=== PATIENT | male | born 1985 | race American Indian/Alaskan Native ===

== ENCOUNTER 2020-06-29 07:09 | Emergency (ER) | payer OTHER ==
[2020-06-29] MEDS ORDERED: Lactated Ringers 1,000 ML IV ONE ×2 (07:39→08:27)
[2020-06-29] MEDS ORDERED: Ondansetron 4 MG/2 ML SDV IV ONE (07:39)
[2020-06-29] MEDS ORDERED: diphenhydrAMINE 50 MG/ML SDV IVPUSH ONE (07:39)
--- NOTE | 2020-06-29 07:46 | EDM.PDOC ---
ED HPI GENERAL MEDICAL PROBLEM - General Chief Complaint: Drug or Alcohol Abuse Stated Complaint: call in Time Seen by Provider: 06/29/20 07:30 Source of Information: Reports: Patient History Limitations: Reports: No Limitations - History of Present Illness INITIAL COMMENTS - FREE TEXT/NARRATIVE: This patient is brought to the emergency department today by ambulance from homes with concerns of a possible opiate overdose. According to EMS patient was found with a decreased level of consciousness and unresponsive at home and breathing by the local Police Department. He was given a total of 28 mg of intranasal Narcan. He was never noted to be cyanotic or in respiratory arrest. Once the ambulance got to him he was very anxious agitated shaky nausea and vomiting. He was transported to the emergency department. Upon arrival the patient reports that he has a daily IV methamphetamine injector. This morning he injected what he was told to be a 30 mg Percocet. Shortly thereafter he woke up in the ambulance. He complains of being very shaky with palpitations his heart is racing he is anxious. He is nauseated he has been vomiting. He has no pain in his chest shortness of breath or difficulty breathing. No cough or congestion. No fever no chills. No abdominal pain just nausea and vomiting. No diarrhea. He did have a twin brother who just a couple years ago from a heart attack but also was a methamphetamine user. NO COVID exposure no COVID symptoms. - Related Data Allergies Allergy/AdvReac Type Severity Reaction Status Date / Time No Known Allergies Allergy Verified 06/29/20 07:31 Home Meds: Home Meds . [No Known Home Meds] 06/29/20 [History] Social & Family History - Tobacco Use Smoking Status *Q: Never Smoker - Recreational Drug Use Recreational Drug Use: Yes Recreational Drug Type: Reports: Oxycodone Recreational Drug Use Frequency: Daily ED ROS GENERAL - Review of Systems Review Of Systems: Comprehensive ROS is negative, except as noted in HPI. - Physical Exam Exam: See Below Exam Limited By: No Limitations General Appearance: Alert, WD/WN, Anxious Eye Exam: Bilateral Eye: EOMI, PERRL (6) Ears: Normal External Exam Nose: Normal Inspection Throat/Mouth: Normal Inspection, Normal Lips Head Exam: Atraumatic, Normocephalic Neck: Normal Inspection, Supple, Non-Tender Respiratory/Chest: No Respiratory Distress, Lungs Clear, Normal Breath Sounds, No Accessory Muscle Use, Chest Non-Tender Cardiovascular: Normal Peripheral Pulses, Tachycardia, Irregularly Irregular GI/Abdominal: Normal Bowel Sounds, Soft, Non-Tender (Male) Exam: Deferred Rectal (Males) Exam: Deferred Neuro Exam (Abbreviated): Alert, Oriented, CN II-XII Intact, Normal Cognition, Normal Gait, No Motor/Sensory Deficits Back Exam: Normal Inspection, Full Range of Motion Extremities: Normal Inspection, Normal Range of Motion, No Pedal Edema, Normal Capillary Refill Psychiatric: Anxious Skin Exam: Intact, Normal Color, Diaphoretic EKG INTERPRETATION EKG Date: 06/29/20 Time: 07:51 Rhythm: A-Fib Rate (Beats/Min): 156 [place]: Normal P-Wave: Present QRS: Normal ST-T: Normal QT: Normal Course - Vital Signs Last Recorded V/S: Last Vital Signs Temp 97.6 F 06/29/20 07:31 Pulse 131 H 06/29/20 10:27 Resp 21 H 06/29/20 10:27 BP 117/82 06/29/20 10:27 Pulse Ox 97 06/29/20 10:27 - Orders/Labs/Meds Orders: Active Orders 24 hr Category Date Time Status CULTURE URINE [RM] Stat Lab 06/29/20 12:02 Received Labs: Laboratory Tests 06/29/20 06/29/20 06/29/20 Range/Units 07:50 07:50 07:51 WBC 11.5 H (5.0-10.0) 10^3/uL RBC 5.39 (4.6-6.2) 10^6/uL Hgb 14.1 (14.0-18.0) g/dL Hct 43.6 (40.0-54.0) % MCV 80.9 (80-100) fL MCH 26.2 L (27.0-34.0) pg MCHC 32.3 L (33.0-35.0) g/dL Plt Count 359 (150-450) 10^3/uL Neut % (Auto) 71.5 (42.2-75.2) % Lymph % (Auto) 15.5 L (20.5-50.1) % [place] % (Auto) 7.2 (2-8) % Eos % (Auto) 5.5 H (1.0-3.0) % Baso % (Auto) 0.3 (0.0-1.0) % Sodium 143 (136-145) mmol/L Potassium 3.4 L (3.5-5.1) mmol/L Chloride 103 (98-107) mmol/L Carbon Dioxide 28 (21-32) mmol/L Anion Gap 15.4 H (7-13) mEq/L BUN 18 (7-18) mg/dL Creatinine 1.14 (0.70-1.30) mg/dL Est Cr Clr Drug Dosing TNP Estimated GFR (MDRD) > 60 BUN/Creatinine Ratio 15.8 (No establ ref range) Glucose 103 H (74-99) mg/dL Calcium 9.3 (8.5-10.1) mg/dL Total Bilirubin 0.3 (0.2-1.0) mg/dL AST 16 (15-37) U/L ALT 24 (16-63) U/L Alkaline Phosphatase 93 (46-116) U/L Troponin I < 0.017 (0.000-0.056) ng/mL Total Protein 8.5 H (6.4-8.2) g/dL Albumin 3.9 (3.4-5.0) g/dL Globulin 4.6 Albumin/Globulin Ratio 0.8 TSH, Ultra Sensitive 1.76 (0.36-3.74) uIU/mL Urine Color (YELLOW) Urine Appearance (CLEAR) Urine pH (5.0-9.0) Ur Specific [place] (1.005-1.030) Urine Protein (NEGATIVE) Urine Glucose (UA) (NEGATIVE) Urine Ketones (NEGATIVE) Urine Occult Blood (NEGATIVE) Urine Nitrite (NEGATIVE) Urine Bilirubin (NEGATIVE) Urine Urobilinogen (0.2-1.0) mg/dL Ur Leukocyte Esterase (NEGATIVE) Urine RBC /HPF Urine WBC (0-5/HPF) /HPF Ur Epithelial Cells (NOT SEEN) /HPF Urine Bacteria (0-FEW/HPF) /HPF Urine Mucus (NOT SEEN) /LPF Salicylates (2.8-20(Therapeutic)) mg/dL Urine Opiates Screen (NEGATIVE) Ur Oxycodone Screen (NEGATIVE) Urine Methadone Screen (NEGATIVE) Acetaminophen 0 L (10-30 (Therapeutic)) ug/mL Ur Barbiturates Screen (NEGATIVE) U Tricyclic Antidepress (NEGATIVE) Ur Phencyclidine Scrn (NEGATIVE) Ur Amphetamine Screen (NEGATIVE) U Methamphetamines Scrn (NEGATIVE) Urine MDMA Screen (NEGATIVE) U Benzodiazepines Scrn (NEGATIVE) Urine Cocaine Screen (NEGATIVE) U Marijuana (THC) Screen (NEGATIVE) Ethyl Alcohol < 3 (0) mg/dL 06/29/20 06/29/20 06/29/20 Range/Units 07:51 12:02 12:02 WBC (5.0-10.0) 10^3/uL RBC (4.6-6.2) 10^6/uL Hgb (14.0-18.0) g/dL Hct (40.0-54.0) % MCV (80-100) fL MCH (27.0-34.0) pg MCHC (33.0-35.0) g/dL Plt Count (150-450) 10^3/uL Neut % (Auto) (42.2-75.2) % Lymph % (Auto) (20.5-50.1) % [place] % (Auto) (2-8) % Eos % (Auto) (1.0-3.0) % Baso % (Auto) (0.0-1.0) % Sodium (136-145) mmol/L Potassium (3.5-5.1) mmol/L Chloride (98-107) mmol/L Carbon Dioxide (21-32) mmol/L Anion Gap (7-13) mEq/L BUN (7-18) mg/dL Creatinine (0.70-1.30) mg/dL Est Cr Clr Drug Dosing Estimated GFR (MDRD) BUN/Creatinine Ratio (No establ ref range) Glucose (74-99) mg/dL Calcium (8.5-10.1) mg/dL Total Bilirubin (0.2-1.0) mg/dL AST (15-37) U/L ALT (16-63) U/L Alkaline Phosphatase (46-116) U/L Troponin I (0.000-0.056) ng/mL Total Protein (6.4-8.2) g/dL Albumin (3.4-5.0) g/dL Globulin Albumin/Globulin Ratio TSH, Ultra Sensitive (0.36-3.74) uIU/mL Urine Color Yellow (YELLOW) Urine Appearance Clear (CLEAR) Urine pH 6.0 (5.0-9.0) Ur Specific [place] >= 1.030 (1.005-1.030) Urine Protein Trace H (NEGATIVE) Urine Glucose (UA) Negative (NEGATIVE) Urine Ketones Negative (NEGATIVE) Urine Occult Blood Trace-intact H (NEGATIVE) Urine Nitrite Negative (NEGATIVE) Urine Bilirubin Negative (NEGATIVE) Urine Urobilinogen 0.2 (0.2-1.0) mg/dL Ur Leukocyte Esterase Small H (NEGATIVE) Urine RBC Not seen /HPF Urine WBC 5-10 H (0-5/HPF) /HPF Ur Epithelial Cells Rare (NOT SEEN) /HPF Urine Bacteria Not seen (0-FEW/HPF) /HPF Urine Mucus Not seen (NOT SEEN) /LPF Salicylates < 2.8 L (2.8-20(Therapeutic)) mg/dL Urine Opiates Screen Positive H (NEGATIVE) Ur Oxycodone Screen Negative (NEGATIVE) Urine Methadone Screen Negative (NEGATIVE) Acetaminophen (10-30 (Therapeutic)) ug/mL Ur Barbiturates Screen Negative (NEGATIVE) U Tricyclic Antidepress Negative (NEGATIVE) Ur Phencyclidine Scrn Negative (NEGATIVE) Ur Amphetamine Screen Positive H (NEGATIVE) U Methamphetamines Scrn Positive H (NEGATIVE) Urine MDMA Screen Positive H (NEGATIVE) U Benzodiazepines Scrn Negative (NEGATIVE) Urine Cocaine Screen Negative (NEGATIVE) U Marijuana (THC) Screen Negative (NEGATIVE) Ethyl Alcohol (0) mg/dL Meds: Medications Discontinued Medications Generic Name Dose Route Start Last Admin Trade Name Freq PRN Reason Stop Dose Admin Diltiazem HCl 20 mg 06/29/20 10:21 06/29/20 10:59 Diltiazem IVPUSH 06/29/20 10:22 20 mg ONETIME ONE Administration Diphenhydramine HCl 50 mg 06/29/20 07:39 06/29/20 08:01 Benadryl IVPUSH 06/29/20 07:40 50 mg ONETIME ONE Administration Lactated Ringer's 1,000 mls @ 1,000 mls/hr 06/29/20 07:39 06/29/20 08:02 Ringers, Lactated IV 06/29/20 08:38 1,000 mls/hr .BOLUS ONE Administration Lactated Ringer's 1,000 mls @ 1,000 mls/hr 06/29/20 08:27 06/29/20 08:59 Ringers, Lactated IV 06/29/20 09:26 1,000 mls/hr .BOLUS ONE Administration Diltiazem HCl 125 mg/ Sodium 150 mls @ 5 mls/hr 06/29/20 10:30 06/29/20 10:59 Chloride IV 5 mls/hr ASDIRECTED LAURA Administration Protocol Lactated Ringer's 1,000 mls @ 150 mls/hr 06/29/20 11:15 Ringers, Lactated IV ASDIRECTED LAURA Metoprolol Tartrate 5 mg 06/29/20 08:16 06/29/20 08:21 Lopressor IVPUSH 06/29/20 08:17 5 mg ONETIME ONE Administration Ondansetron HCl 4 mg 06/29/20 07:39 06/29/20 08:01 Zofran IV 06/29/20 07:40 4 mg ONETIME ONE Administration - Re-Assessments/Exams Free Text/Narrative Re-Assessment/Exam: Initially the patient was given a fluid bolus. Zofran and Benadryl with resolution of his nausea retching and vomiting. The patient clearly has a new onset of atrial fibrillation with RVR. Although I am unsure if this is new as of today or if he had this in the recent past as he has no documentation of it. An aspect of this could be due to the narcotic withdrawal with the rather large amount of Narcan that was given to him. I would like to hydrate him and I did not give him any benzodiazepines at this time because after the Benadryl he was somewhat somnolent. He had regular respirations and he awoke to loud verbal. Even after the second liter of IV fluid and the patient was resting comfortably in no distress and appeared not to be anxious he still had a heart rate in the 140s to 150s. The patient was given metoprolol 5 mg IV push. His heart rate did improve down to the 120s. Laboratory evaluation is rather unremarkable. He has a negative troponin. He is urine drug screen is positive for opiates MDMA amphetamines and methamphetamines. Jc spoke with Dr. Underwood who would like the patient transfered as we do not have Echo capability here. I called and spoke with the hospitalist cone winder at [facility] as [facility] do not have beds. HPI ER COURSE findings and concerns were relayed to him. He would like Cardizem bolus and gtt started and no heparin at this time. I discussed the plan of care with the patient and his mother. They are comfortable with this plan and his questions answered. Departure - Departure Time of Disposition: 11:02 Disposition: DC/Tfer to Acute Hospital 02 Clinical Impression: Atrial fibrillation with rapid ventricular response, Polysubstance abuse Opiate overdose Qualifiers: Encounter type: initial encounter Injury intent: accidental or unintentional Qualified Code(s): T40.601A - Poisoning by unspecified narcotics, accidental (unintentional), initial encounter - Discharge Information Referrals: PCP,None [Primary Care Provider] - Forms: ED Department Discharge Sepsis Event Note (ED) - Evaluation Sepsis Screening Result: No Definite Risk - My Orders Last 24 Hours: My Active Orders 06/29/20 12:02 CULTURE URINE [RM] Stat - Assessment/Plan Last 24 Hours: My Active Orders 06/29/20 12:02 CULTURE URINE [RM] Stat
[2020-06-29] MEDS ORDERED: Metoprolol Tartrate 5 MG/5 ML SDV IVPUSH ONE (08:16)
[2020-06-29 08:26] LABS: ANION GAP 15.4 mEq/L (7-13); CHLORIDE,CL 103 mmol/L (98-107); SODIUM,NA 143 mmol/L (136-145)
[2020-06-29] MEDS ORDERED: Diltiazem 25 MG/5 ML SDV IVPUSH ONE (10:21)
[2020-06-29] MEDS ORDERED: Diltiazem 125 MG in Sodium Chloride 0.9% 125 ML IV SCH (10:30)
[2020-06-29] MEDS ORDERED: Lactated Ringers 1,000 ML IV SCH (11:15)
== END 2020-06-29 12:29 ==
LOC: DL.ED 07:09
DX: T40.601A Poisoning by unspecified narcotics, accidental (unintentional), initial encounter (principal); F15.10 Other stimulant abuse, uncomplicated; I48.91 Unspecified atrial fibrillation; R00.0 Tachycardia, unspecified
CPT/HCPCS: 36415; 80053; 80305; 80307; 81001; 84443; 84484; 85025; 87086; 93005; 96361; 96365; 96375; 99285; J1200; J2405; J3490; J7050; J7120

== ENCOUNTER 2021-01-19 11:04 | Emergency (ER) | payer SELFPAY ==
[2021-01-19] MEDS ORDERED: Ondansetron 4 MG/2 ML SDV IVPUSH ONE (11:23)
[2021-01-19] MEDS ORDERED: Sodium Chloride 0.9% 1,000 ML IV ONE (11:24)
[2021-01-19 12:03] LABS: ANION GAP 18.4 mEq/L (7-13); CHLORIDE,CL 103 mmol/L (98-107); SODIUM,NA 142 mmol/L (136-145)
--- NOTE | 2021-01-19 12:21 | EDM.PDOCBH ---
ED HPI GENERAL MEDICAL PROBLEM - General Chief Complaint: Drug or Alcohol Abuse Time Seen by Provider: 01/19/21 12:12 Source of Information: Reports: Patient, EMS, RN, RN Notes Reviewed History Limitations: Reports: Intoxication - History of Present Illness INITIAL COMMENTS - FREE TEXT/NARRATIVE: Patient presents to the ED via [facility] for altered mental status and respiratory decline d/t heroine abuse. Per EMS the patient was unresponsive upon their arrival at the scene; chest compressions were initiated prior to Narcan 8mcg administration. Patient was immediately responsive following admi nistration of Narcan and chest compressions were halted; no medications or defibrillation was necessary. Upon arrival to this facility the patient's GCS is 15, he is alert and oriented to all spheres. He states he was incarcerated for the past four months and has not used recreational drugs until last night when he injected his previous dose of heroine. He denies recent illness, fever, shaking chills, vision changes, chest pain/pressure, palpitations, shortness of breath, abdominal pain, nausea, vomiting, dysuria, hematuria, or diarrhea. He denies tobacco or alcohol use. - Related Data Allergies Allergy/AdvReac Type Severity Reaction Status Date / Time No Known Allergies Allergy Verified 06/29/20 07:31 Home Meds: Home Meds . [No Known Home Meds] 06/29/20 [History] Past Medical History - Past Health History Medical/Surgical History: Denies Medical/Surgical History Social & Family History - Family History Family Medical History: No Pertinent Family History - Tobacco Use Tobacco Use Status *Q: Current Every Day Tobacco User Years of Tobacco use: 20 Packs/Tins Daily: 1 Used Tobacco, but Quit: No - Caffeine Use Caffeine Use: Reports: None - Recreational Drug Use Recreational Drug Use: Yes Drug Use in Last 12 Months: Yes Recreational Drug Type: Reports: Heroin Recreational Drug Use Frequency: Daily ED ROS GENERAL - Review of Systems Review Of Systems: Comprehensive ROS is negative, except as noted in HPI. ED EXAM, BEHAVIORAL HEALTH - Physical Exam Exam: See Below Exam Limited By: Intoxication (Heroine) General Appearance: No Apparent Distress, Lethargic (Rouses to voice) Eye Exam: Bilateral Eye: EOMI, Normal Inspection, PERRL (3mm) Throat/Mouth: Normal Inspection, Normal Voice, No Airway Compromise Head: Atraumatic, Normocephalic Respiratory/Chest: Lungs Clear, Chest Non-Tender, Accessory Muscle Use, Other ( Snoring respirations). No: Crackles, Rales, Rhonchi, Wheezing, Stridor, Retractions Cardiovascular: Regular Rate, Rhythm, No Edema, No Gallop, No JVD, No Murmur, No Rub, Tachycardia GI/Abdominal: Soft, Non-Tender, No Distention, No Mass, Pelvis Stable, Abnormal Bowel Sounds (Hypoactive bowel sounds) (Male) Exam: Deferred Rectal (Males) Exam: Deferred Extremities: Normal Inspection, Normal Range of Motion, Non-Tender, Normal Capillary Refill, No Pedal Edema Neurological: Oriented x 3, Opens Eyes to Commands, Withdraws to Pain Psychiatric: Normal Affect, Normal Cognition, Oriented. No: Inattentive, Uncooperative, Suicidal Plan, Suicidal Thoughts, Threatening Behavior Skin Exam: Warm, Dry, Intact, Normal color, No rash, Needle aguilar, Tattoo(s) #1 Interpretation EKG Date: 01/19/21 Time: 11:26 Rhythm: Other (Sinus bradycardia) Rate (Beats/Min): 57 [place]: Normal P-Wave: Present QRS: Normal ST-T: Normal QT: Normal AK/PQ Interval: 0.14 Comparison: Change From Previous EKG (Previous EKG patient was in AFib in 130s; today presents SB to NSR with no ectopy) EKG Interpretation Comments: SB; No evidence of acute myocardial ischemia COURSE, BEHAVIORAL HEALTH COMP - Course Vital Signs: Last Vital Signs Temp 97.6 F 01/19/21 11:35 Pulse 102 H 01/19/21 11:35 Resp 20 01/19/21 11:35 BP 118/70 01/19/21 11:35 Pulse Ox 99 01/19/21 11:35 Orders, Labs, Meds: Laboratory Tests 01/19/21 01/19/21 01/19/21 Range/Units 11:33 11:33 11:33 WBC 10.3 H (5.0-10.0) 10^3/uL RBC 5.07 (4.6-6.2) 10^6/uL Hgb 13.9 L (14.0-18.0) g/dL Hct 41.7 (40.0-54.0) % MCV 82.2 (80-100) fL MCH 27.4 (27.0-34.0) pg MCHC 33.3 (33.0-35.0) g/dL Plt Count 282 D (150-450) 10^3/uL Neut % (Auto) 84.9 H (42.2-75.2) % Lymph % (Auto) 7.9 L (20.5-50.1) % [place] % (Auto) 5.3 (2-8) % Eos % (Auto) 1.7 (1.0-3.0) % Baso % (Auto) 0.2 (0.0-1.0) % Sodium 142 (136-145) mmol/L Potassium 3.4 L (3.5-5.1) mmol/L Chloride 103 (98-107) mmol/L Carbon Dioxide 24 (21-32) mmol/L Anion Gap 18.4 H (7-13) mEq/L BUN 24 H (7-18) mg/dL Creatinine 1.20 (0.70-1.30) mg/dL Est Cr Clr Drug Dosing 87.87 mL/min Estimated GFR (MDRD) > 60 BUN/Creatinine Ratio 20.0 (No establ ref range) Glucose 184 H (70-99) mg/dL Lactic Acid 2.8 H* (0.4-2.0) mmol/L Calcium 8.8 (8.5-10.1) mg/dL Magnesium 2.1 (1.8-2.4) mg/dL Total Bilirubin 0.9 (0.2-1.0) mg/dL AST 38 H (15-37) U/L ALT 47 (16-63) U/L Alkaline Phosphatase 90 (46-116) U/L Troponin I < 0.017 (0.000-0.056) ng/mL C-Reactive Protein 3.4 H (0.0-0.9) mg/dL Total Protein 7.6 (6.4-8.2) g/dL Albumin 3.6 (3.4-5.0) g/dL Globulin 4.0 Albumin/Globulin Ratio 0.9 Urine Color (YELLOW) Urine Appearance (CLEAR) Urine pH (5.0-9.0) Ur Specific [place] (1.005-1.030) Urine Protein (NEGATIVE) Urine Glucose (UA) (NEGATIVE) Urine Ketones (NEGATIVE) Urine Occult Blood (NEGATIVE) Urine Nitrite (NEGATIVE) Urine Bilirubin (NEGATIVE) Urine Urobilinogen (0.2-1.0) mg/dL Ur Leukocyte Esterase (NEGATIVE) U Hyaline Cast (Auto) Urine RBC /HPF Urine WBC (0-5/HPF) /HPF Ur Epithelial Cells (NOT SEEN) /HPF Amorphous Sediment (NOT SEEN) /HPF Urine Bacteria (0-FEW/HPF) /HPF Urine Mucus (NOT SEEN) /LPF Urine Other Urine Yeast (NOT SEEN) /HPF Urine Opiates Screen (NEGATIVE) Ur Oxycodone Screen (NEGATIVE) Urine Methadone Screen (NEGATIVE) Ur Barbiturates Screen (NEGATIVE) U Tricyclic Antidepress (NEGATIVE) Ur Phencyclidine Scrn (NEGATIVE) Ur Amphetamine Screen (NEGATIVE) U Methamphetamines Scrn (NEGATIVE) Urine MDMA Screen (NEGATIVE) U Benzodiazepines Scrn (NEGATIVE) Urine Cocaine Screen (NEGATIVE) U Marijuana (THC) Screen (NEGATIVE) Ethyl Alcohol < 3 (0) mg/dL 01/19/21 01/19/21 Range/Units 14:40 14:40 WBC (5.0-10.0) 10^3/uL RBC (4.6-6.2) 10^6/uL Hgb (14.0-18.0) g/dL Hct (40.0-54.0) % MCV (80-100) fL MCH (27.0-34.0) pg MCHC (33.0-35.0) g/dL Plt Count (150-450) 10^3/uL Neut % (Auto) (42.2-75.2) % Lymph % (Auto) (20.5-50.1) % [place] % (Auto) (2-8) % Eos % (Auto) (1.0-3.0) % Baso % (Auto) (0.0-1.0) % Sodium (136-145) mmol/L Potassium (3.5-5.1) mmol/L Chloride (98-107) mmol/L Carbon Dioxide (21-32) mmol/L Anion Gap (7-13) mEq/L BUN (7-18) mg/dL Creatinine (0.70-1.30) mg/dL Est Cr Clr Drug Dosing mL/min Estimated GFR (MDRD) BUN/Creatinine Ratio (No establ ref range) Glucose (70-99) mg/dL Lactic Acid (0.4-2.0) mmol/L Calcium (8.5-10.1) mg/dL Magnesium (1.8-2.4) mg/dL Total Bilirubin (0.2-1.0) mg/dL AST (15-37) U/L ALT (16-63) U/L Alkaline Phosphatase (46-116) U/L Troponin I (0.000-0.056) ng/mL C-Reactive Protein (0.0-0.9) mg/dL Total Protein (6.4-8.2) g/dL Albumin (3.4-5.0) g/dL Globulin Albumin/Globulin Ratio Urine Color Dark yellow (YELLOW) Urine Appearance Slightly cloudy (CLEAR) Urine pH 6.0 (5.0-9.0) Ur Specific [place] >= 1.030 (1.005-1.030) Urine Protein 100 H (NEGATIVE) Urine Glucose (UA) Negative (NEGATIVE) Urine Ketones 15 H (NEGATIVE) Urine Occult Blood Large H (NEGATIVE) Urine Nitrite Negative (NEGATIVE) Urine Bilirubin Small H (NEGATIVE) Urine Urobilinogen 1.0 (0.2-1.0) mg/dL Ur Leukocyte Esterase Negative (NEGATIVE) U Hyaline Cast (Auto) Few Urine RBC 30-40 H /HPF Urine WBC 0-5 (0-5/HPF) /HPF Ur Epithelial Cells Not seen (NOT SEEN) /HPF Amorphous Sediment Few (NOT SEEN) /HPF Urine Bacteria Moderate H (0-FEW/HPF) /HPF Urine Mucus Moderate H (NOT SEEN) /LPF Urine Other See note Urine Yeast Moderate H (NOT SEEN) /HPF Urine Opiates Screen Positive H (NEGATIVE) Ur Oxycodone Screen Positive H (NEGATIVE) Urine Methadone Screen Negative (NEGATIVE) Ur Barbiturates Screen Negative (NEGATIVE) U Tricyclic Antidepress Negative (NEGATIVE) Ur Phencyclidine Scrn Negative (NEGATIVE) Ur Amphetamine Screen Positive H (NEGATIVE) U Methamphetamines Scrn Positive H (NEGATIVE) Urine MDMA Screen Negative (NEGATIVE) U Benzodiazepines Scrn Negative (NEGATIVE) Urine Cocaine Screen Negative (NEGATIVE) U Marijuana (THC) Screen Negative (NEGATIVE) Ethyl Alcohol (0) mg/dL Medications Discontinued Medications Generic Name Dose Route Start Last Admin Trade Name Freq PRN Reason Stop Dose Admin Sodium Chloride 1,000 mls @ 999 mls/hr 01/19/21 11:24 01/19/21 11:27 Normal Saline IV 01/19/21 12:24 999 mls/hr .BOLUS ONE Administration Ondansetron HCl 4 mg 01/19/21 11:23 01/19/21 11:27 Ondansetron 4 Mg/2 Ml Sdv IVPUSH 01/19/21 11:24 4 mg ONETIME ONE Administration Re-Assessment/Re-Exam: NS 1L bolus initiated upon patient's arrival. Patient given Zofran 4mg IVP prophylactically. Patient remains oriented to all spheres following IVF; reports he is feeling ok and would like to go home. Lactic acid slightly elevated a 2.8, likely due to acute heroin use. Supportive cares for acute intoxication discussed. Red flag signs and symptoms which would warrant reevaluation reviewed. Patient verbalized understanding and agreement with the plan of care. Tox screen positive for amphetamines, methamphetamines, opiates, and oxycodone. Departure - Departure Time of Disposition: 14:14 Disposition: Home, Self-Care 01 Condition: Good Clinical Impression: Heroin abuse, Elevated lactic acid level - Discharge Information *PRESCRIPTION DRUG MONITORING PROGRAM REVIEWED*: Not Applicable *COPY OF PRESCRIPTION DRUG MONITORING REPORT IN PATIENT CIRA: Not Applicable Instructions: Substance Use Disorder, Finding Treatment for Addiction Forms: ED Department Discharge Additional Instructions: 1.) Refrain from using recreational drugs. 2.) Drink plenty of water to stay hydrated and flush drugs out of your system. 3.) Eat a bland diet as you recover from your acute heroin intoxication; avoid spicy, greasy, high-fat foods. 4.) Follow up with local counseling services for assistance with substance use disorder. Sepsis Event Note (ED) - Evaluation Sepsis Screening Result: No Definite Risk - Focused Exam Vital Signs: Vital Signs Temp Pulse Resp BP Pulse Ox 01/19/21 11:35 97.6 F 102 H 20 118/70 99
== END 2021-01-19 14:52 | disposition home or self-care (01) ==
LOC: DL.ED 11:04
DX: F11.129 Opioid abuse with intoxication, unspecified (principal); R74.02 Elevation of levels of lactic acid dehydrogenase [LDH]
CPT/HCPCS: 36415; 80053; 80305; 80307; 81001; 83605; 83735; 84484; 85025; 86140; 93005; 93010; 96374; 99284; 99285; J2405; J7030